=== PATIENT | male | born 1975 | race Two or more races ===

== ENCOUNTER 2024-08-06 00:05 | Emergency (ER) | payer OTHER ==
[2024-08-06] MEDS: Ketorolac 30 MG/ML SDV IM ONE (00:57)
[2024-08-06] MEDS: Acetaminophen/HYDROcodone 325-5 MG Tab PO ONE (01:42)
== END 2024-08-06 01:55 | disposition home or self-care (01) ==
LOC: EDBD 00:05 → MW.ED 00:05
DX: M25.511 Pain in right shoulder (principal); F17.210 Nicotine dependence, cigarettes, uncomplicated; Z88.8 Allergy status to other drugs, medicaments and biological substances
CPT/HCPCS: 73030; 93005; 99284; A9270; 93010; 99283